=== PATIENT | female | born 1990 | race American Indian/Alaskan Native ===

== ENCOUNTER 2017-08-22 10:52 | Emergency (ER) | payer SELFPAY ==
[2017-08-22 11:39] VITALS: BP 134/84
--- NOTE | 2017-08-22 13:42 | Emergency Department Report ---
ED General Adult HPI - General Chief complaint: Skin/Abscess/Foreign Body Stated complaint: PAINFUL LUMP IN BREAST Time Seen by Provider: 08/22/17 13:34 Source: patient Mode of arrival: Ambulatory Limitations: No Limitations - History of Present Illness Initial comments: 27-year-old female process and also with painful lumps to breast 1 week. No fever, redness, discharge. She took a negative home test. Pain is worse with palpation and moderate. - Related Data Allergies Allergy/AdvReac Type Severity Reaction Status Date / Time No Known Allergies Allergy Unverified 08/22/17 11:33 ED Review of Systems ROS: Stated complaint: PAINFUL LUMP IN BREAST Other details as noted in HPI Comment: All other systems reviewed and negative ED Past Medical Hx - Past Medical History Previous Medical History?: No Additional medical history: HPV - Surgical History Past Surgical History?: No - Social History Smoking Status: Current Every Day Smoker Substance Use Type: Alcohol, Marijuana ED Physical Exam - General Limitations: No Limitations - Other Other exam information: General: No limitations, patient is alert in no acute distress Head exam: Atraumatic, normocephalic Eyes exam: Normal appearance ENT: Moist mucous membrane, normal oropharynx Neck exam: Normal inspection, full range of motion, no meningismus nontender Breasts: Tenderness to palpation at 12:00 area of the breast pump with possible firm masses. No erythema, fluctuance,warmth or nipple drainage. No breast asymmetry Respiratory exam: Clear to auscultation bilateral, no wheezes, rales, crackles Cardiovascular: Normal rate and rhythm Abdomen: Soft, nondistended, and nontender, with normal bowel sounds, no rebound, or guarding Extremity: Full range of motion normal inspection no deformity Back: Normal Inspection, full range of motion, no tenderness Neurologic: Alert, oriented x3, cranial nerves intact, no motor or sensory deficit Psychiatric: normal affect, normal mood Skin: Warm, dry, intact ED Course Vital Signs 08/22/17 11:33 Temperature 98.7 F Pulse Rate 17 L Respiratory 18 Rate Blood Pressure 134/84 O2 Sat by Pulse 100 Oximetry ED Medical Decision Making - Medical Decision Making Patient doesn't have any clinical symptoms of abscess. She states she had a negative home test. She'll be referred to [facility]/breast specialist for further evaluation of her tender breasts masses - Differential Diagnosis fibrocystic change, breast cancer, abscess Critical Care Time: No Critical care attestation.: If time is entered above; I have spent that time in minutes in the direct care of this critically ill patient, excluding procedure time. ED Disposition Clinical Impression: Breast mass in female Disposition: DC-01 TO HOME OR SELFCARE Is pt being admited?: No Does the pt Need Aspirin: No Condition: Stable Instructions: Breast Mass (ED) Additional Instructions: Take Tylenol or Motrin as needed for pain. Follow-up with either resources provided for further evaluation of your breasts. Referrals: FANNY DILLARD MD [Staff Physician] - 3-5 Days (breast specialist) TEA TALAVERA MD [Staff Physician] - 3-5 Days (medical assistant ob gyn ) [facility] [Other] - 3-5 Days (refer to paperwork provided) Time of Disposition: 13:42
== END 2017-08-22 13:50 | disposition home or self-care (01) ==
LOC: ED 10:52
DX: N63.0 Unspecified lump in unspecified breast (principal); F17.200 Nicotine dependence, unspecified, uncomplicated; F12.10 Cannabis abuse, uncomplicated
CPT/HCPCS: 99281